=== PATIENT | male | born 1990 | race Caucasian/White ===

== ENCOUNTER 2020-03-28 07:02 | Emergency (ER) | payer SELFPAY ==
--- NOTE | 2020-03-28 07:09 | NUR ---
Pt BIB EMS, v/s stable, pt A/O, refusing to stay, Left without being seen.
== END 2020-03-28 07:09 | disposition left against medical advice (07) ==
LOC: SED 07:02
DX: Z53.21 Procedure and treatment not carried out due to patient leaving prior to being seen by health care provider (principal)